=== PATIENT | female | born 2000 | race Two or more races ===

== ENCOUNTER 2022-09-04 01:58 | Outpatient (CLI) | payer OTHER | END 2022-09-04 02:08 | disposition home or self-care (01) | LOC: PPH VACUNA 01:58 | PROVIDERS: ATTEND Emergency Medicine Pediatric Emergency Medicine | DX: Z23 Encounter for immunization (principal) ==

== ENCOUNTER 2022-09-04 13:59 | Outpatient (CLI) | payer OTHER | END 2022-09-04 14:09 | disposition home or self-care (01) | LOC: PPH VACUNA 13:59 | PROVIDERS: ATTEND Emergency Medicine Pediatric Emergency Medicine | DX: Z23 Encounter for immunization (principal) ==